=== PATIENT | female | born 1935 | race Caucasian/White ===

== ENCOUNTER → 2020-06-14 | Outpatient (CLI) | payer MEDICARE ==
[~2020-06-14] MED LIST: HYDROCODON-ACE1 EAC4 PO
== END ==
LOC: EXRD 05-26 13:00
DX: M81.0 Age-related osteoporosis without current pathological fracture (principal); E55.9 Vitamin D deficiency, unspecified
CPT/HCPCS: 77080

== ENCOUNTER → 2020-08-04 | Outpatient (CLI) | payer MEDICARE | LOC: EXRD 13:30 | DX: I25.10 Atherosclerotic heart disease of native coronary artery without angina pectoris (principal); H47.019 Ischemic optic neuropathy, unspecified eye; H53.9 Unspecified visual disturbance; I65.23 Occlusion and stenosis of bilateral carotid arteries | CPT/HCPCS: 93880 ==

== ENCOUNTER 2020-08-18 09:55 | Emergency (ER) | payer MEDICARE ==
[2020-08-18] MEDS ORDERED: HYDROCODON-ACE1 EAC4 PO (12:12)
== END 2020-08-18 12:40 | disposition home or self-care (01) ==
LOC: ER1 09:55
DX: S60.211A Contusion of right wrist, initial encounter (principal); Z95.1 Presence of aortocoronary bypass graft; Z90.710 Acquired absence of both cervix and uterus; W01.0XXA Fall on same level from slipping, tripping and stumbling without subsequent striking against object, initial encounter
CPT/HCPCS: 73110; 73130; 99283